=== PATIENT | male | born 1960 ===

== ENCOUNTER 2018-06-09 00:07 | Outpatient (CLI) | payer BC, MEDICARE | END 2018-06-09 23:59 | disposition home or self-care (01) | LOC: DIABETIC 00:07 | PROVIDERS: ATTEND Nurse Practitioner Family | DX: E11.65 Type 2 diabetes mellitus with hyperglycemia (principal); E11.40 Type 2 diabetes mellitus with diabetic neuropathy, unspecified; E11.21 Type 2 diabetes mellitus with diabetic nephropathy; E11.319 Type 2 diabetes mellitus with unspecified diabetic retinopathy without macular edema; E11.43 Type 2 diabetes mellitus with diabetic autonomic (poly)neuropathy; K31.84 Gastroparesis; I67.9 Cerebrovascular disease, unspecified; I10 Essential (primary) hypertension; E78.5 Hyperlipidemia, unspecified | CPT/HCPCS: G0108 ==

== ENCOUNTER 2018-07-14 03:11 | Outpatient (CLI) | payer BC, MEDICARE | END 2018-07-14 23:59 | disposition home or self-care (01) | LOC: DIABETIC 03:11 | PROVIDERS: ATTEND Nurse Practitioner Family | DX: E11.65 Type 2 diabetes mellitus with hyperglycemia (principal); Z79.4 Long term (current) use of insulin | CPT/HCPCS: G0108 ==